=== PATIENT | female | born 1945 | race Caucasian/White ===

== ENCOUNTER 2017-11-23 05:41 | Emergency (ER) | payer BC, MEDICARE ==
[2017-11-23 06:16] LABS: #Basophils 0.1 thou/uL (0.0-0.2); #Eosinphils 0.1 thou/uL (0.0-0.7); #Lymphocytes 1.7 thou/uL (1.20-3.40); #Monocytes 0.6 thou/uL (0.11-0.59); #Neutrophils 4.9 thou/uL (1.40-6.50); %Basophils 0.8 % (0.0-1.0); %Eosinophils 1.3 % (0.0-10.0); %Monocytes 8.1 % (0.0-10.0); %Neutrophils 66.7 % (42.0-75.0); Hemoglobin 12.6 g/dL (12.0-16.0); Mean Corpuscular HGB CONC 32.1 g/dL (32.0-36.0); Mean Corpuscular Hemoglobin 29.3 pg (27.0-31.0); Mean Corpuscular Volume 91.4 fl (81.0-99.0); Mean Platelet Volume 6.5 fL (7.4-10.4); Platelet Count 325 thou/uL (130-400); RBC Distribution Width 13.4 % (11.5-14.5); Red Blood Cell (RBC) Count 4.29 mill/uL (4.20-5.40); White Blood Cell (WBC) Count 7.3 thou/uL (4.8-10.8)
[2017-11-23 06:23] LABS: Bilirubin Negative (Negative); Blood, Urine Negative (Negative); Glucose, Urine (Dipstick) Negative (Negative); Leukocyte Small (Negative); Nitrite Negative (Negative); Protein, Urine (Dipstick) Negative (Neg-Trace); Urobilinogen 0.2 mg/dL (0.2-1.0); pH, Urine 5.5 (5.0-9.0)
[2017-11-23 06:26] LABS: Clarity Clear (Clear); Specific Gravity, Urine 1.007 (1.002-1.036)
[2017-11-23 06:28] LABS: Bacteria/HPF None Seen HPF (None Seen); Hyaline Casts/LPF 0-3 HYALINE CAST LPF (0-3 Hyaline); Pathc Cast-AUWi Flag 0.27 (0-2.49); RBC/HPF 0-3 HPF (0-3); Squamous Epithelial 0-3 HPF (0-3)
[2017-11-23 06:40] LABS: ALT (SGPT) 18 U/L (8-55); AST (SGOT) 14 U/L (5-34); Albumin 4.1 g/dL (3.4-4.8); Alkaline Phosphatase 72 U/L (40-150); Anion Gap 12 mmol/L (10-20); BUN (Urea Nitrogen) 17 mg/dL (9.8-20.1); Bilirubin, Total 0.5 mg/dL (0.2-1.2); Calc. Creatinine Clearance 0 mL/min (70-130); Carbon Dioxide 29 mmol/L (23-31); Chloride 97 mmol/L (98-107); Estimated GFR-MDRD 58; Globulin 3.1 g/dL (2.4-3.5); Glucose 134 mg/dL (83-110); Lipase 19 U/L (8-78); Potassium 4.2 mmol/L (3.5-5.1); Protein, Total 7.2 g/dL (6.0-8.3); Sodium 134 mmol/L (136-145)
[2017-11-23 06:50] LABS: Crystals/HPF None Seen HPF (Negative)
--- NOTE | 2017-11-23 08:10 | RAD ---
UPRIGHT PORTABLE CHEST 1 VIEW: Date: 11/23/17 HISTORY: 72-year-old female with history of chest pain for approximately 10 days with nausea, intermittent. FINDINGS: Heart size is within normal limits. Atherosclerosis of aorta with some ectasia. Evidence for a hiatal hernia. No confluent pneumonia, overt edema, or pleural effusions. IMPRESSION: No significant acute intrathoracic disease. Evidence for hiatal hernia. Atherosclerosis of aorta with some ectasia. POS: OFF
[2017-11-23 08:19] LABS: CKMB 1.6 ng/mL (0-6.6); Troponin I Less than 0.010 ng/mL (< 0.028)
--- NOTE | 2017-11-23 09:27 | ULT ---
GALLBLADDER ULTRASOUND: Date: 11/23/17 HISTORY: Pain and nausea x10 days. COMPARISON: None. TECHNIQUE: Utilizing multihertz transducer, sonographic imaging of the right upper quadrant is performed in the longitudinal and transverse plane. FINDINGS: Pancreas is obscured by bowel gas. Visualized aorta and IVC have a normal caliber. Increased [place] of the liver may be due to hepatic steatosis or hepatocellular disease. Limited evaluation for h epatic masses and intrahepatic biliary dilatation. Right hepatic lobe measures 17.2 cm. Main portal v ein is patent. Appropriate direction of flow. Common bile duct measures 0.5 cm. Gallbladder is contra cted. No sonographic evidence of cholelithiasis, gallbladder wall thickening, or pericholecystic flui d. Negative Hebert's sign. Right Kidney: Renal cortical thinning. No hydronephrosis. 5.2 x 10.6 x 5.0 cm. IMPRESSION: Contracted gallbladder despite patient being NPO x12 hours. If there is concern for chronic cholecyst itis/acalculous cholecystis, consider HIDA scan. POS: [facility]
[2017-11-23] MEDS ORDERED: Lidocaine Viscous Sol 2% 15 ml UD Cup ONE (09:58)
[2017-11-23] MEDS ORDERED: Mag-Al 1200 mg/1200 mg/30 ML UDCUP ONE (09:58)
== END 2017-11-23 10:34 | disposition home or self-care (01) ==
LOC: ERS 05:41
DX: R10.13 Epigastric pain (principal); E78.5 Hyperlipidemia, unspecified; I10 Essential (primary) hypertension; K21.9 Gastro-esophageal reflux disease without esophagitis; Z79.82 Long term (current) use of aspirin; Z79.899 Other long term (current) drug therapy
CPT/HCPCS: 36415; 71045; 76705; 80053; 81003; 81015; 82553; 83690; 84484; 85025; 93005

== ENCOUNTER 2019-06-02 15:39 | Observation (INO) | payer MEDICARE ==
[2019-06-02 16:28] LABS: Hemoglobin 12.8 g/dL (12.0-16.0); Mean Corpuscular HGB CONC 32.9 g/dL (32.0-36.0); Mean Corpuscular Hemoglobin 31.2 pg (27.0-31.0); Mean Corpuscular Volume 94.7 fL (78.0-98.0); Mean Platelet Volume 7.1 fL (7.4-10.4); Platelet Count 184 thou/uL (130-400); RBC Distribution Width 12.4 % (11.5-14.5); Red Blood Cell (RBC) Count 4.11 mill/uL (4.20-5.40); White Blood Cell (WBC) Count 6.8 thou/uL (4.8-10.8)
[2019-06-02] MEDS ORDERED: Aspirin Chewable 81 MG TAB ONE (16:35)
[2019-06-02] MEDS ORDERED: Nitroglycerin 2% Ointment 1 INCH/1 GM Packet ONE (16:35)
[2019-06-02 16:36] LABS: ALT (SGPT) 26 U/L (8-55); AST (SGOT) 24 U/L (5-34); Albumin 4.1 g/dL (3.4-4.8); Alkaline Phosphatase 74 U/L (40-150); Anion Gap 14 mmol/L (10-20); BUN (Urea Nitrogen) 12 mg/dL (9.8-20.1); Bilirubin, Total 0.3 mg/dL (0.2-1.2); CK (CPK) 142 U/L (29-168); Calc. Creatinine Clearance 0 mL/min (70-130); Calcium 9.2 mg/dL (7.8-10.44); Carbon Dioxide 24 mmol/L (23-31); Chloride 105 mmol/L (98-107); Estimated GFR-MDRD 77; Glucose 84 mg/dL (83-110); Potassium 4.2 mmol/L (3.5-5.1); Protein, Total 7.1 g/dL (6.0-8.3); Sodium 139 mmol/L (136-145)
[2019-06-02 16:49] LABS: Eosinophils 2 % (0-10); Lymphocytes 21 % (21-51); MDiff Complete? YES; Monocytes 5 % (0-10); Neutrophil 72 % (42-75); Platelet Morphology Comment Appears Adequate
--- NOTE | 2019-06-02 16:52 | RAD ---
Frontal radiograph chest: 06/02/2019 COMPARISON: 11/23/2017 HISTORY: Left arm numbness, ongoing chest pain FINDINGS: There is mild atherosclerotic calcification of the aortic arch. No pneumothorax or pleural fluid. No focal consolidation or alveolar edema. IMPRESSION: No acute findings.
[2019-06-02 17:02] LABS: CKMB 2.8 ng/mL (0-6.6)
[2019-06-02 19:28] LABS: Troponin I 0.031 ng/mL (< 0.028)
[2019-06-02 22:01] VITALS: BMI 35.3
[2019-06-02] MEDS ORDERED: Acetaminophen 325 MG TAB PO PRN (22:13)
[2019-06-02] MEDS ORDERED: Ondansetron PF 4 MG/2 ML Vial IVP PRN (22:13)
[2019-06-02] MEDS ORDERED: Ondansetron ODT 4 MG TAB SL PRN (22:13)
[2019-06-02 22:45] LABS: Troponin I 0.032 ng/mL (< 0.028)
[2019-06-02] MEDS ORDERED: cloNIDine 0.2 MG TAB PO PRN (22:50)
[2019-06-02] MEDS ORDERED: Baclofen 10 MG TAB PO PRN (22:50)
[2019-06-02] MEDS ORDERED: Nitroglycerin 2% Ointment 1 INCH/1 GM Packet TOP SCH (23:59)
[2019-06-03] MEDS ORDERED: hydrALAZINE 25 MG TAB PO SCH ×2 (00:45→09:00)
[2019-06-03] MEDS ORDERED: Hydrochlorothiazide 25 MG TAB PO SCH ×2 (00:45→21:00)
[2019-06-03] MEDS ORDERED: Famotidine 20 MG TAB PO SCH ×2 (00:45→09:00)
[2019-06-03 05:05] LABS: #Basophils 0.1 thou/uL (0.0-0.2); #Eosinphils 0.2 thou/uL (0.0-0.7); #Lymphocytes 2.1 thou/uL (1.20-3.40); #Monocytes 0.5 thou/uL (0.11-0.59); #Neutrophils 3.4 thou/uL (1.40-6.50); %Basophils 1.3 % (0.0-1.0); %Eosinophils 3.8 % (0.0-10.0); %Lymphocytes 33.3 % (21.0-51.0); %Monocytes 8.1 % (0.0-10.0); %Neutrophils 53.5 % (42.0-75.0); Hemoglobin 12.3 g/dL (12.0-16.0); Mean Corpuscular HGB CONC 33.7 g/dL (32.0-36.0); Mean Corpuscular Hemoglobin 32.2 pg (27.0-31.0); Mean Corpuscular Volume 95.4 fL (78.0-98.0); Mean Platelet Volume 6.8 fL (7.4-10.4); Platelet Count 217 thou/uL (130-400); RBC Distribution Width 12.2 % (11.5-14.5); Red Blood Cell (RBC) Count 3.83 mill/uL (4.20-5.40); White Blood Cell (WBC) Count 6.4 thou/uL (4.8-10.8)
[2019-06-03 05:14] LABS: Anion Gap 13 mmol/L (10-20); BUN (Urea Nitrogen) 9 mg/dL (9.8-20.1); Calc. Creatinine Clearance 114 mL/min (70-130); Carbon Dioxide 23 mmol/L (23-31); Cardiac Risk 4.8 (Less than 4.5); Chloride 105 mmol/L (98-107); Cholesterol 191 mg/dl (< 200 Desired); Estimated GFR-MDRD Greater than 90; Glucose 93 mg/dL (83-110); HDL Cholesterol 40 mg/dL (>60 Neg Risk); LDL Cholesterol, Calculated 108 mg/dL; Potassium 3.7 mmol/L (3.5-5.1); Sodium 137 mmol/L (136-145); Triglycerides 215 mg/dL (Less than 150)
--- NOTE | 2019-06-03 05:15 | HP ---
PRIMARY CARE PHYSICIAN: Out of town in [place]. CHIEF COMPLAINT: Chest pressure. HISTORY OF PRESENT ILLNESS: Ms. Silverman is a 73-year-old female who reports to the emergency room today in [facility] for evaluation of chest pressure with left arm numbness and pain. Reports that it started at 10 a.m. this morning and is intermittent. Reports that she feels like her breath is being sucked out of her when it occurs. Denies any nausea or vomiting. Denies any other symptoms associated with that. Denies any orthopnea. Denies any dyspnea on exertion. PAST MEDICAL HISTORY: Pertinent for hypertension, hyperlipidemia, GERD. In the emergency room, chest x-ray showed no acute findings. CBC, unremarkable. Comprehensive metabolic panel, unremarkable. Troponin x3 in the indeterminate range of 0.050, 0.031, and 0.032. The patient reports that she does see a biomedical engineer who comes to [place] to the [facility]. Reports that she had a stress test and an echocardiogram 2 years ago and it was within normal limits. Has no cardiac history other than hypertension and hyperlipidemia. The patient was subsequently admitted to the observation unit for further management. REVIEW OF SYSTEMS: Reports chest pain. Reports some shortness of breath, both are intermittent. Denies any syncope, chills, fever. Denies any other symptoms. All systems are reviewed and are negative unless mentioned in the HPI. PAST MEDICAL HISTORY: GERD, hyperlipidemia, and hypertension. PAST SURGICAL HISTORY: Hemorrhoidectomy, A and T, right foot surgery, hernia repair, and tonsillectomy. PSYCHIATRIC HISTORY: None. SOCIAL HISTORY: Denies any alcohol or drug use. Has no smoking history. FAMILY HISTORY: Denies family history of any coronary artery disease. KNOWN ALLERGIES: Penicillin. HOME MEDICATIONS: 1. Aspirin 81 mg p.o. daily. 2. Baclofen 10 mg p.o. p.r.n. p.m. 3. Vitamin D3, 2000 units p.o. daily. 4. Clonidine 0.2 mg p.o. b.i.d. 5. Voltaren cream 2 g topical q.i.d. p.r.n. 6. Furosemide 20 mg p.o. daily. 7. Hydralazine 100 mg p.o. b.i.d. 8. Hydrochlorothiazide 50 mg p.o. at bedtime. 9. Iron 65 mg p.o. daily. 10. Lisinopril 40 mg p.o. daily. 11. Magnesium 250 mg p.o. daily. 12. Meloxicam 7.5 mg p.o. b.i.d. 13. Bystolic 10 mg p.o. daily. 14. Fatty acids fish oil one capsule p.o. daily. 15. Prilosec 20 mg p.o. daily. 16. Zofran 4 mg p.o. q.6 hours as needed. 17. Ditropan 5 mg p.o. b.i.d. 18. Potassium chloride 10 mEq p.o. b.i.d. PHYSICAL EXAMINATION: VITAL SIGNS: Blood pressure 163/78, pulse is 50, respirations 14, pO2 sats are 96% on room air, temp is 98.2. CONSTITUTIONAL: The patient is nontoxic appearing. She is alert and oriented to person, place and time. HEENT: Head is atraumatic and normocephalic. Eyes, pupils are equal, round, and reactive to light. Extraocular muscles are intact. NECK: Supple. Normal range of motion. RESPIRATORY/CHEST: Breath sounds are clear. Chest expansion is equal. CARDIOVASCULAR: Regular heart rate and rhythm. Heart sounds are normal. ABDOMEN: Nontender. Bowel sounds are heard. BACK: Normal range of motion. Normal inspection. EXTREMITIES: Upper extremities; normal inspection, normal range of motion. Radial pulses are equal bilaterally. Lower extremities, normal inspection, normal range of motion. Pedal pulses are equal. NEUROLOGIC: She is oriented to person, place, and time. Speech is normal. SKIN: Warm, dry, normal in color. LABORATORY DATA: EKG shows sinus lorraine at 57, no acute ST elevation, axis is normal. ASSESSMENT AND PLAN: 1. Chest pressure with left arm pain. Troponins x3 have been trended. We will order a Cardiolite stress test. We will check lipids and TSH in the morning. 2. Hypertension. We will restart home medications. We will trend. 3. Bladder urgency. We will restart home medications. 4. Gastroesophageal reflux disease. We will restart home medications. 5. Gastrointestinal and deep venous thrombosis prophylaxis have been started. Job ID: [id number]
[2019-06-03 08:32] VITALS: BP 180/79; TEMP 97.5
[2019-06-03] MEDS ORDERED: Regadenoson 0.4 MG/5 ML SYRINGE ONE ×2 (08:53→15:11)
[2019-06-03] MEDS ORDERED: Magnesium Oxide 250 MG TAB PO SCH (09:00)
[2019-06-03] MEDS ORDERED: Ferrous Sulfate 325 MG TAB PO SCH (09:00)
[2019-06-03] MEDS ORDERED: Aspirin 81 mg Enteric Coated Tablet PO SCH (09:00)
[2019-06-03] MEDS ORDERED: Nebivolol HCl 5 MG TAB PO SCH (09:00)
[2019-06-03] MEDS ORDERED: Lisinopril 20 MG TAB PO SCH (09:00)
[2019-06-03] MEDS ORDERED: Furosemide 20 MG TAB PO SCH (09:00)
[2019-06-03] MEDS ORDERED: Enoxaparin Sodium 40 MG/0.4 ML SYRINGE SC SCH (09:00)
--- NOTE | 2019-06-03 13:28 | NM ---
Exam: Nuclear medicine cardiac SPECT with ejection fraction and wall motion, stress only HISTORY: Chest pressure, hypertension, dyslipidemia Lexiscan stress study was performed. Patient was injected with 30 mCi technetium 99m sestamibi intravenously for stress images. FINDINGS: Multiple SPECT images in the short axis, vertical long axis, and horizontal long axis demonstrates no evidence for infarct or ischemia. LHR 0.25 EDV 110 mL EF 68% Wall motion: Unremarkable. IMPRESSION: Unremarkable stress only cardiac SPECT with EF and wall motion.
--- NOTE | 2019-06-04 23:55 | DIS ---
DATE OF ADMISSION: 06/02/2019 DATE OF DISCHARGE: 06/03/2019 DISCHARGE DIAGNOSES: 1. Chest pain. 2. Hypertension. 3. History of reflux. 4. History of bladder urgency. HISTORY OF PRESENT ILLNESS: The patient is a 73-year-old female with the above-mentioned past medical history, who presented to the hospital with chest pressure symptoms. She had initial workup including negative troponins x3. HOSPITAL COURSE: The patient was placed in observation status on telemetry. She had no significant EKG findings for ischemia. She had negative troponins. She subsequently underwent a Lexiscan stress test which came back unremarkable. Her symptoms have fully abated and did not occur, she was therefore felt stable for discharge to home. PHYSICAL EXAMINATION: At the time of discharge, VITAL SIGNS: Temperature 97.5, pulse 45, respirations 14, O2 saturation 94% to 96% on room air, BP ranged from 136/62 to 180/79. GENERAL: She was awake and alert. HEART: Regular rate and rhythm. No murmurs, gallops, or rubs. LUNGS: Clear bilaterally. ABDOMEN: Benign. EXTREMITIES: No edema. DISPOSITION: The patient is discharged home in stable condition. She will have no changes in her home medication regimen. DIET: She will be on a heart healthy diet. ACTIVITY: As tolerated. I did attempt to call her set builder; however, set builder is out of town until Thursday. The patient was made aware. FOLLOWUP: She is encouraged to follow up with her primary care provider and with her set builder and she can return to our facility anytime should she have any problems prior to followup. Job ID: [id number]
== END 2019-06-03 15:29 | disposition home or self-care (01) ==
LOC: SCSER 15:39 → 2SW 16:58 → SCSER 20:33
PROVIDERS: ADMIT Internal Medicine; ATTEND Internal Medicine
DX: R07.89 Other chest pain (principal); I10 Essential (primary) hypertension; E78.5 Hyperlipidemia, unspecified; K21.9 Gastro-esophageal reflux disease without esophagitis; R39.15 Urgency of urination; Z79.82 Long term (current) use of aspirin; Z79.899 Other long term (current) drug therapy; Z88.0 Allergy status to penicillin
CPT/HCPCS: 71045; 78452; 80048; 80061; 82550; 82553; 84484 ×2; 85025; 93005; 93017; 99285; A9500; G0378 ×3; 36415; 80053; 84443; J2785

== ENCOUNTER 2023-05-11 14:42 | Outpatient (CLI) | payer MEDICARE | END 2023-05-11 14:43 | disposition home or self-care (01) | LOC: SCSMRI 14:42 | PROVIDERS: ATTEND Neurological Surgery | DX: M54.50 Low back pain, unspecified (principal); M48.062 Spinal stenosis, lumbar region with neurogenic claudication; M47.816 Spondylosis without myelopathy or radiculopathy, lumbar region | CPT/HCPCS: 72148 ==